=== PATIENT | male | born 1975 | race Caucasian/White ===

== ENCOUNTER 2020-01-28 21:49 | Observation (INO) | payer BC ==
[2020-01-28] MEDS ORDERED: Ondansetron 4 MG Tab.DIS PO ONE (22:02)
[2020-01-28] MEDS ORDERED: Ketorolac 60 MG/2 ML SDV IM ONE (22:02)
[2020-01-28] MEDS ORDERED: Sodium Chloride 0.9% 1,000 ML IV ONE (22:18)
[2020-01-28] MEDS ORDERED: Ondansetron 4 MG/2 ML SDV IVPUSH ONE (22:18)
[2020-01-28] MEDS ORDERED: fentaNYL 100 MCG/2 ML SDV IVPUSH ONE ×2 (22:18→23:05)
[2020-01-28] MEDS ORDERED: Sodium Chloride 0.9% 10 ML Syringe FLUSH PRN (22:18)
[2020-01-28] MEDS ORDERED: Tamsulosin 0.4 MG Cap.ER PO ONE (22:18)
--- NOTE | 2020-01-28 22:33 | EDM.PDOC ---
ED HPI GENERAL MEDICAL PROBLEM - General Chief Complaint: General Stated Complaint: Lower flank pain Time Seen by Provider: 01/28/20 22:01 Source of Information: Reports: Patient History Limitations: Reports: No Limitations - History of Present Illness INITIAL COMMENTS - FREE TEXT/NARRATIVE: Patient comes to ER with history of sudden left sided flank pain present for approx 60 min. Had mild flank pain in same area one week ago that lasted a few hours but resolved on own. He thought it was due to a pulled muscle. Some sweating. No nausea or emesis. Denies chronic medical problems. No history of kidney stones. Was otherwise feeling fine prior to tonight's pain developing. Left Back Pain Score (Numeric/FACES): 10 - Related Data Allergies Allergy/AdvReac Type Severity Reaction Status Date / Time No Known Allergies Allergy Verified 01/28/20 21:56 Home Meds: Home Meds . [No Known Home Meds] 01/28/20 [History] Past Medical History - Past Health History Medical/Surgical History: Denies Medical/Surgical History Social & Family History - Tobacco Use Smoking Status *Q: Current Every Day Smoker Years of Tobacco use: 20 Packs/Tins Daily: 1 - Caffeine Use Caffeine Use: Reports: Coffee, Soda - Alcohol Use Alcohol Use History: Yes Alcohol Use Frequency: Socially - Recreational Drug Use Recreational Drug Use: Yes Recreational Drug Type: Reports: Marijuana/Hashish Recreational Drug Use Frequency: Socially ED ROS GENERAL - Review of Systems Review Of Systems: See Below Constitutional: Reports: Diaphoresis. Denies: Fever, Chills, Malaise, Weakness, Fatigue, Night Sweats HEENT: Reports: No Symptoms Respiratory: Reports: No Symptoms Cardiovascular: Reports: No Symptoms GI/Abdominal: Reports: No Symptoms : Reports: Flank Pain (wraps around left side and shoots towards groin). Denies: Frequency, Hematuria, Pain, Urgency, Urinary Retention Musculoskeletal: Reports: No Symptoms Skin: Reports: No Symptoms Neurological: Reports: No Symptoms Psychiatric: Reports: No Symptoms ED EXAM, GENERAL - Physical Exam Exam: See Below Exam Limited By: No Limitations General Appearance: Alert, Anxious, Moderate Distress (pacing. Does not want to sit down) Eye Exam: Bilateral Eye: EOMI, PERRL Ears: Hearing Grossly Normal Nose: No: Nasal Deformity, Nasal Swelling, Nasal Drainage Throat/Mouth: Normal Lips, Normal Voice, No Airway Compromise Head: Atraumatic, Normocephalic Neck: Supple, Full Range of Motion Respiratory/Chest: No Respiratory Distress, Lungs Clear, Normal Breath Sounds, No Accessory Muscle Use, Chest Non-Tender Cardiovascular: Regular Rate, Rhythm, No Edema, No Murmur GI/Abdominal: Soft, Non-Tender, No Distention (Male) Exam: Deferred Rectal (Males) Exam: Deferred Back Exam: CVA Tenderness (L) (mild). No: CVA Tenderness (R), Muscle Spasm, Paraspinal Tenderness, Vertebral Tenderness Extremities: Normal Inspection, Normal Capillary Refill Neurological: Alert, Oriented, Normal Cognition, Normal Gait Psychiatric: Anxious Skin Exam: Warm, Dry, Intact, Normal Color Course - Vital Signs Last Recorded V/S: Last Vital Signs Temp 36.4 C 01/28/20 21:51 Pulse 86 01/28/20 23:15 Resp 16 01/28/20 23:15 BP 133/73 01/28/20 23:15 Pulse Ox 97 01/28/20 23:15 - Orders/Labs/Meds Orders: Active Orders 24 hr Category Date Time Status Abdomen Pelvis wo Cont [CT] Stat Exams 01/28/20 22:02 Taken Sodium Chloride 0.9% [Saline Flush] Med 01/28/20 22:18 Active 10 ml FLUSH ASDIRECTED PRN Saline Lock Insert [OM.PC] Routine Oth 01/28/20 22:18 Ordered Medication Orders Sodium Chloride (Saline Flush) 10 ml FLUSH ASDIRECTED PRN PRN Reason: Keep Vein Open Last Admin: 01/28/20 22:44 Dose: 10 ml Documented by: HEATHER Labs: Laboratory Tests 01/28/20 01/28/20 01/28/20 Range/Units 22:15 22:20 22:20 WBC 10.0 (4.0-10.2) K/uL RBC 5.03 (4.33-5.41) M/uL Hgb 14.5 (13.1-16.8) g/dL Hct 42.9 (39.0-49.0) % MCV 85.3 (84.0-98.0) fL MCH 28.8 (28.2-33.3) pg MCHC 33.8 (31.7-36.0) g/dL RDW 14.5 H (11.2-14.1) % Plt Count 244 (150-350) K/uL Neut % (Auto) 62.8 (45.0-80.0) % Lymph % (Auto) 23.5 (10.0-50.0) % [place] % (Auto) 11.4 (2.0-14.0) % Eos % (Auto) 2.1 (0.0-5.0) % Baso % (Auto) 0.2 (0.0-2.0) % Neut # (Auto) 6.25 (1.40-7.00) K/uL Lymph # (Auto) 2.34 (0.50-3.50) K/uL [place] # (Auto) 1.13 H (0.00-1.00) K/uL Eos # (Auto) 0.21 (0.00-0.50) K/uL Baso # (Auto) 0.02 (0.00-0.20) K/uL Sodium 140 (136-145) mmol/L Potassium 3.7 (3.5-5.1) mmol/L Chloride 104 (98-107) mmol/L Carbon Dioxide 24.3 (21.0-32.0) mmol/L BUN 12 (7-18) mg/dL Creatinine 0.94 (0.51-1.17) mg/dL Est Cr Clr Drug Dosing 129.02 mL/min Estimated GFR (MDRD) > 60 mL/min Glucose 151 H (74-106) mg/dL Calcium 9.4 (8.5-10.1) mg/dL Total Bilirubin 0.5 (0.2-1.0) mg/dL AST 20 (15-37) U/L ALT 40 (12-78) U/L Alkaline Phosphatase 123 H (46-116) IU/L Total Protein 7.8 (6.4-8.2) g/dL Albumin 4.0 (3.4-5.0) g/dL Specimen Type Urinblad Urine Color Yellow Urine Appearance Slightly cloudy Urine pH >= 9.0 (5.0-9.0) Ur Specific [place] 1.020 (1.005-1.030) Urine Protein 30 H (NEGATIVE) mg/dL Urine Glucose (UA) Negative (NEGATIVE) mg/dL Urine Ketones Negative (NEGATIVE) mg/dL Urine Occult Blood Large H (NEGATIVE) Urine Nitrite Negative (NEGATIVE) Urine Bilirubin Negative (NEGATIVE) Urine Urobilinogen 0.2 (0.2-1.0) E.U./dL Ur Leukocyte Esterase Negative (NEGATIVE) Urine RBC >100 H /HPF Urine WBC 0-5 /HPF Ur Epithelial Cells Few /LPF Urine Bacteria Few (NONE TO FEW) /HPF Meds: Medications Generic Name Dose Route Start Last Admin Trade Name Freq PRN Reason Stop Dose Admin Sodium Chloride 10 ml 01/28/20 22:18 01/28/20 22:44 Saline Flush FLUSH 10 ml ASDIRECTED PRN Administration Keep Vein Open Discontinued Medications Generic Name Dose Route Start Last Admin Trade Name Freq PRN Reason Stop Dose Admin Fentanyl 100 mcg 01/28/20 22:18 01/28/20 22:37 Sublimaze IVPUSH 01/28/20 22:19 100 mcg ONETIME ONE Administration Fentanyl 100 mcg 01/28/20 23:05 01/28/20 23:10 Sublimaze IVPUSH 01/28/20 23:06 100 mcg ONETIME ONE Administration Sodium Chloride 1,000 mls @ 999 mls/hr 01/28/20 22:18 01/28/20 22:30 Normal Saline IV 01/28/20 23:18 999 mls/hr .BOLUS ONE Administration Ketorolac Tromethamine 60 mg 01/28/20 22:02 01/28/20 22:06 Toradol IM 01/28/20 22:03 60 mg ONETIME ONE Administration Ondansetron HCl 4 mg 01/28/20 22:02 01/28/20 22:06 Zofran Odt PO 01/28/20 22:03 4 mg ONETIME ONE Administration Ondansetron HCl 4 mg 01/28/20 22:18 01/28/20 22:36 Zofran IVPUSH 01/28/20 22:19 4 mg ONETIME ONE Administration Tamsulosin HCl 0.4 mg 01/28/20 22:18 01/28/20 22:42 Flomax PO 01/28/20 22:19 0.4 mg ONETIME ONE Administration - Radiology Interpretation CT Results Date: 01/28/20 CT Results Time: 23:41 (3mm x 8mm stone distal ureter L) - Re-Assessments/Exams Free Text/Narrative Re-Assessment/Exam: 01/28/20 22:23 Basic labs requested. Toradol IM and abd/pelvic CT ordered. Free Text/Narrative Re-Assessment/Exam: 01/28/20 23:53 CT confirmed kidney stone as noted above. Pain improved. Will admit observation and continue IV fluids and pain control. Incidental finding of abnormality near left adrenal gland. Was recommended to get focused MRI study of the adrenal gland as outpatient vis PCP for better evaluation. This was relayed to the patient. Departure - Departure Time of Disposition: 23:55 Disposition: Refer to Observation Condition: Good Clinical Impression: Kidney stone on left side, Adrenal abnormality - Discharge Information *PRESCRIPTION DRUG MONITORING PROGRAM REVIEWED*: Not Applicable *COPY OF PRESCRIPTION DRUG MONITORING REPORT IN PATIENT JOHN: Not Applicable Forms: ED Department Discharge Sepsis Event Note (ED) - Evaluation Sepsis Screening Result: No Definite Risk - Focused Exam Vital Signs: Vital Signs Temp Pulse Resp BP Pulse Ox 01/28/20 23:15 86 16 133/73 97 01/28/20 23:00 88 16 151/89 H 100 01/28/20 22:45 107 H 18 148/94 H 100 01/28/20 21:51 36.4 C 90 14 150/80 H 100 - Problem List & Annotations (1) Kidney stone on left side SNOMED Code(s): 88358765 Code(s): N20.0 - CALCULUS OF KIDNEY Status: Acute Priority: High Current Visit: Yes Onset Date: ~01/28/20 Annotation/Comment:: 3mm x 8mm stone near left UVJ. Mild hydro. Appears to have good chance to pass on own per Radiology given orientation. Will need referral to Urology for follow up. Will admit observation tonight for continued IV fluids and pain management. (2) Adrenal abnormality SNOMED Code(s): 72645143 Code(s): E27.9 - DISORDER OF ADRENAL GLAND, UNSPECIFIED Status: Acute Priority: Medium Current Visit: Yes Annotation/Comment:: Incident finding left adrenal gland per Radiology that will need follow up dedicated MRI study to make certain benign issue. Will need to follow up with PCP and have this scheduled. - Problem List Review Problem List Initiated/Reviewed/Updated: Yes - My Orders Last 24 Hours: My Active Orders 01/28/20 22:02 Abdomen Pelvis wo Cont [CT] Stat 01/28/20 22:18 Sodium Chloride 0.9% [Saline Flush] 10 ml FLUSH ASDIRECTED PRN Saline Lock Insert [OM.PC] Routine - Assessment/Plan Admission H&P: Please use this note as an admission H&P Last 24 Hours: My Active Orders 01/28/20 22:02 Abdomen Pelvis wo Cont [CT] Stat 01/28/20 22:18 Sodium Chloride 0.9% [Saline Flush] 10 ml FLUSH ASDIRECTED PRN Saline Lock Insert [OM.PC] Routine Assessment:: as above. Pt stable and suitable for general supervision Plan: as above. Anticipate 1-2 day stay depending on clinical course and if patient can pass the stone on his own.
[2020-01-28 22:45] LABS: CHLORIDE,CL 104 mmol/L (98-107); SODIUM,NA 140 mmol/L (136-145)
[2020-01-29] MEDS ORDERED: Sodium Chloride 0.9% 1,000 ML IV ONE (00:11)
[2020-01-29] MEDS ORDERED: Ondansetron 4 MG/2 ML SDV IVPUSH PRN (00:12)
[2020-01-29] MEDS ORDERED: Morphine 2 MG/ML SYRINGE IVPUSH PRN (00:12)
[2020-01-29] MEDS: Nicotine 21 MG/24 Hr Patch TRDERM SCH ×2 (00:57→07:24)
[2020-01-29] MEDS ORDERED: HYDROmorphone 0.5 MG/0.5 ML Syringe IVPUSH ONE (01:40)
[2020-01-29] MEDS: Sodium Chloride 0.9% 1,000 ML IV SCH ×2 (04:12→10:37)
[2020-01-29] MEDS: Ketorolac 30 MG/ML SDV IVPUSH SCH ×2 (04:12→09:19)
[2020-01-29] MEDS ORDERED: Tamsulosin 0.4 MG Cap.ER PO SCH (08:30)
--- NOTE | 2020-01-29 13:23 | PCM.DCSUM1 ---
Discharge Summary - Hospital Course HPI Initial Comments: Pt admitted for left flank pain with left kidney stone on CT scan Diagnosis: Stroke: No - Discharge Data Discharge Date: 01/29/20 Discharge Disposition: Home, Self-Care 01 Condition: Good - Referral to Home Health Primary Care Physician: PCP None - Discharge Diagnosis/Problem(s) (1) Kidney stone on left side SNOMED Code(s): 22738522 ICD Code: N20.0 - CALCULUS OF KIDNEY Status: Acute Priority: High Current Visit: Yes Onset Date: ~01/28/20 Problem Details: 3mm x 8mm stone near left UVJ. Mild hydro. Appears to have good chance to pass on own per Radiology given orientation. Will need referral to Urology for follow up. Will admit observation tonight for continued IV fluids and pain management. Pt has not passed stone but is pain free at this time - Patient Instructions Diet: Regular Diet as Tolerated Activity: As Tolerated Driving: May Drive Today Showering/Bathing: May Shower Notify Provider of: Increased Pain Other/Special Instructions: Follow up in clinc in 24 to 48 hours for recheck and urology referral. - Discharge Plan *PRESCRIPTION DRUG MONITORING PROGRAM REVIEWED*: Not Applicable *COPY OF PRESCRIPTION DRUG MONITORING REPORT IN PATIENT JOHN: Not Applicable Prescriptions/Med Rec: Ketorolac [Toradol] 10 mg PO Q8H PRN #15 tab PRN Reason: Pain Home Medications: Home Meds Ketorolac [Toradol] 10 mg PO Q8H PRN #15 tab 01/29/20 [Rx] Forms: ED Department Discharge Referrals: Lauren Barfield PA-C [[facility] [employer] [facility]] - - Discharge Summary/Plan Comment DC Time >30 min.: No - General Info Date of Service: 01/29/20 Admission Dx/Problem (Free Text: Left ureteral stone Functional Status: Reports: Pain Controlled - Review of Systems Genitourinary: Reports: Pain - Patient Data Vitals - Most Recent: Last Vital Signs Temp 98.7 F 01/29/20 12:00 Pulse 75 01/29/20 12:00 Resp 15 01/29/20 12:00 BP 136/78 01/29/20 12:00 Pulse Ox 98 01/29/20 12:00 Weight - Most Recent: 280 lb 15.984 oz I&O - Last 24 hours: Intake & Output 01/29/20 01/29/20 01/29/20 02:59 10:59 18:59 Intake Total 994 Output Total 210 1400 Balance -210 -406 Lab Results - Last 24 hrs: Laboratory Results - last 24 hr 01/28/20 01/28/20 01/28/20 Range/Units 22:15 22:20 22:20 WBC 10.0 (4.0-10.2) K/uL RBC 5.03 (4.33-5.41) M/uL Hgb 14.5 (13.1-16.8) g/dL Hct 42.9 (39.0-49.0) % MCV 85.3 (84.0-98.0) fL MCH 28.8 (28.2-33.3) pg MCHC 33.8 (31.7-36.0) g/dL RDW 14.5 H (11.2-14.1) % Plt Count 244 (150-350) K/uL Neut % (Auto) 62.8 (45.0-80.0) % Lymph % (Auto) 23.5 (10.0-50.0) % [place] % (Auto) 11.4 (2.0-14.0) % Eos % (Auto) 2.1 (0.0-5.0) % Baso % (Auto) 0.2 (0.0-2.0) % Neut # (Auto) 6.25 (1.40-7.00) K/uL Lymph # (Auto) 2.34 (0.50-3.50) K/uL [place] # (Auto) 1.13 H (0.00-1.00) K/uL Eos # (Auto) 0.21 (0.00-0.50) K/uL Baso # (Auto) 0.02 (0.00-0.20) K/uL Sodium 140 (136-145) mmol/L Potassium 3.7 (3.5-5.1) mmol/L Chloride 104 (98-107) mmol/L Carbon Dioxide 24.3 (21.0-32.0) mmol/L BUN 12 (7-18) mg/dL Creatinine 0.94 (0.51-1.17) mg/dL Est Cr Clr Drug Dosing 129.02 mL/min Estimated GFR (MDRD) > 60 mL/min Glucose 151 H (74-106) mg/dL Calcium 9.4 (8.5-10.1) mg/dL Total Bilirubin 0.5 (0.2-1.0) mg/dL AST 20 (15-37) U/L ALT 40 (12-78) U/L Alkaline Phosphatase 123 H (46-116) IU/L Total Protein 7.8 (6.4-8.2) g/dL Albumin 4.0 (3.4-5.0) g/dL Specimen Type Urinblad Urine Color Yellow Urine Appearance Slightly cloudy Urine pH >= 9.0 (5.0-9.0) Ur Specific [place] 1.020 (1.005-1.030) Urine Protein 30 H (NEGATIVE) mg/dL Urine Glucose (UA) Negative (NEGATIVE) mg/dL Urine Ketones Negative (NEGATIVE) mg/dL Urine Occult Blood Large H (NEGATIVE) Urine Nitrite Negative (NEGATIVE) Urine Bilirubin Negative (NEGATIVE) Urine Urobilinogen 0.2 (0.2-1.0) E.U./dL Ur Leukocyte Esterase Negative (NEGATIVE) Urine RBC >100 H /HPF Urine WBC 0-5 /HPF Ur Epithelial Cells Few /LPF Urine Bacteria Few (NONE TO FEW) /HPF Med Orders - Current: Current Medications Sodium Chloride (Normal Saline) 1,000 mls @ 150 mls/hr IV ASDIRECTED [facility] Last Admin: 01/29/20 10:37 Dose: 150 mls/hr Documented by: Ketorolac Tromethamine (Toradol) 30 mg IVPUSH Q6H [facility] Stop: 02/03/20 04:00 Last Admin: 01/29/20 09:19 Dose: 30 mg Documented by: Morphine Sulfate (Morphine) 2 mg IVPUSH Q1H PRN PRN Reason: Pain Last Admin: 01/29/20 01:37 Dose: 2 mg Documented by: Nicotine (Habitrol) 21 mg TRDERM DAILY [facility] Last Admin: 01/29/20 07:24 Dose: Not Given Documented by: Ondansetron HCl (Zofran) 4 mg IVPUSH Q6H PRN PRN Reason: Nausea/Vomiting Sodium Chloride (Saline Flush) 10 ml FLUSH ASDIRECTED PRN PRN Reason: Keep Vein Open Last Admin: 01/28/20 22:44 Dose: 10 ml Documented by: Tamsulosin HCl (Flomax) 0.4 mg PO BIDPC [facility] Last Admin: 01/29/20 07:51 Dose: 0.4 mg Documented by: Discontinued Medications Fentanyl (Sublimaze) 100 mcg IVPUSH ONETIME ONE Stop: 01/28/20 22:19 Last Admin: 01/28/20 22:37 Dose: 100 mcg Documented by: Fentanyl (Sublimaze) 100 mcg IVPUSH ONETIME ONE Stop: 01/28/20 23:06 Last Admin: 01/28/20 23:10 Dose: 100 mcg Documented by: Hydromorphone HCl (Dilaudid) 0.5 mg IVPUSH ONETIME ONE Stop: 01/29/20 01:41 Last Admin: 01/29/20 01:57 Dose: 0.5 mg Documented by: Sodium Chloride (Normal Saline) 1,000 mls @ 999 mls/hr IV .BOLUS ONE Stop: 01/28/20 23:18 Last Admin: 01/28/20 22:30 Dose: 999 mls/hr Documented by: Sodium Chloride (Normal Saline) 1,000 mls @ 250 mls/hr IV .BOLUS ONE Stop: 01/29/20 04:10 Last Admin: 01/29/20 00:10 Dose: 250 mls/hr Documented by: Ketorolac Tromethamine (Toradol) 60 mg IM ONETIME ONE Stop: 01/28/20 22:03 Last Admin: 01/28/20 22:06 Dose: 60 mg Documented by: Ondansetron HCl (Zofran Odt) 4 mg PO ONETIME ONE Stop: 01/28/20 22:03 Last Admin: 01/28/20 22:06 Dose: 4 mg Documented by: Ondansetron HCl (Zofran) 4 mg IVPUSH ONETIME ONE Stop: 01/28/20 22:19 Last Admin: 01/28/20 22:36 Dose: 4 mg Documented by: Tamsulosin HCl (Flomax) 0.4 mg PO ONETIME ONE Stop: 01/28/20 22:19 Last Admin: 01/28/20 22:42 Dose: 0.4 mg Documented by: - Exam Lungs: Reports: Clear to Auscultation Cardiovascular: Reports: Regular Rate (Male) Exam: Other (Minimal flank pain) Back Exam: Reports: CVA Tenderness (L)
== END 2020-01-29 13:57 | disposition home or self-care (01) ==
LOC: LL.ED 21:49 → UNDOADMOB 01-29 00:06 → LL.MS 01-29 00:06
PROVIDERS: ADMIT Emergency Medicine; ATTEND Emergency Medicine
DX: N13.2 Hydronephrosis with renal and ureteral calculous obstruction (principal); E27.9 Disorder of adrenal gland, unspecified; R91.1 Solitary pulmonary nodule; K57.30 Diverticulosis of large intestine without perforation or abscess without bleeding; K76.0 Fatty (change of) liver, not elsewhere classified; F17.210 Nicotine dependence, cigarettes, uncomplicated; K40.90 Unilateral inguinal hernia, without obstruction or gangrene, not specified as recurrent; Z79.899 Other long term (current) drug therapy
CPT/HCPCS: 36415; 74176; 80053; 81001; 85025; 96361; 96372; 96374; 96375; 96376; 99285-25; A9270-GY; G0378; J1170; J1885; J2270; J2405; J3010; J7030